=== PATIENT | male | born 1965 | race Caucasian/White ===

== ENCOUNTER 2016-12-06 11:40 | Emergency (ER) | payer OTHER ==
[~2016-12-06] VITALS: Ht 162.6 cm; Wt 89.0 kg
[~2016-12-06 11:40] MED LIST: CLIN-73 PO; HYDR-3498 PO
[2016-12-06 11:44] VITALS: Ht 162.6 cm; Wt 89.0 kg
[2016-12-06] MEDS ORDERED: KETOROLAC 30 MG INJ IM STA (12:12)
--- NOTE | 2016-12-06 13:23 | RADRPT ---
PROCEDURE: XR Right Ankle. CLINICAL INDICATION: swelling pain TECHNIQUE: AP, oblique and lateral views of the right ankle were performed. COMPARISON: None. FINDINGS: There is normal mineralization and alignment. A well corticated os subfibulare is seen caudal to the distal right fibula. No acute fracture or osseous lesion is identified. There is mild anterior and posterior osteophytosis at the tibiotalar joint space. There is mild soft tissue swelling overlying the lateral malleolus. IMPRESSION: 1. No evidence of acute fracture or dislocation. 2. Mild osteoarthrosis of the tibiotalar joint. 3. Mild soft tissue swelling overlying the lateral malleolus. RPTAT: EE Physician Layo Date Time Electronically viewed and signed by Physician Layo on 12/06/2016 13:23 BROOKE/
--- NOTE | 2016-12-06 13:37 | ERD ---
ER Documentation Chief Complaint Date/Time DATE: 12/06/16 TIME: 13:32 Chief Complaint right foot/ankle pAIN HPI This 51-year-old male presents to the emergency department today complaining of right ankle pain and swelling for the past 5 days. States that he applied ice to the area. States that a year ago he was told he had a problem with his peroneal tendon he had an injection done at that time. States he is also have gout in the past in his toe but this does not feel the same. States he is able to ambulate with pain. Denies any specific trauma. Denies any fevers or chills ROS All systems reviewed and are negative except as per history of present illness. Medications Home Meds Active Scripts Naproxen* (Naprosyn*) 500 Mg Tablet, 500 MG PO BID Y for PAIN AND/OR INFLAMMATION, #30 TAB Prov:KENNETH MCPHERSON PA-C 12/06/16 Tramadol HCl (Tramadol HCl) 50 Mg Tablet, 50 MG PO Q4 Y for PAIN, #15 TAB Prov:KENNETH MCPHERSON PA-C 12/06/16 Clindamycin Hcl* (Clindamycin Hcl*) 300 Mg Capsule, 300 MG PO QID for 10 Days, CAP Prov:ARTUR MAURICIO MD 05/09/15 Hydrocodone Bit-Acetaminophen* (Kilmichael*) 5-325 Mg Tab, 1 TAB PO Q6 Y for PAIN, # 16 TAB Prov:ARTUR MAURICIO MD 05/09/15 Allergies Allergies: Uncoded Allergies: MOTIRN (Allergy, Unknown, 05/09/15) PMhx/Soc History of Surgery: Yes (meniscus cap surgery) Anesthesia Reaction: No Hx Neurological Disorder: No Hx Respiratory Disorders: No Hx Cardiac Disorders: No Hx Psychiatric Problems: No Hx Miscellaneous Medical Probl: Yes (gout) Hx Alcohol Use: Yes (last night) Hx Substance Use: Yes (marijuana) Hx Tobacco Use: No Physical Exam Vitals Vital Signs Date Time Temp Pulse Resp B/P Pulse Ox O2 Delivery O2 Flow Rate FiO2 12/06/16 11:44 97.7 89 18 140/78 99 Physical Exam Const: NAD Head: Atraumatic Eyes: Normal Conjunctiva ENT: Normal External Ears, Nose and Mouth. Neck: Full range of motion..~ No meningismus. Resp: Clear to auscultation bilaterally Cardio: Regular rate and rhythm, no murmurs Abd: Soft, non tender, non distended. Normal bowel sounds Skin: No petechiae or rashes MSK: Right ankle with no obvious deformity. No erythema or warmth mild effusion over lateral aspect of ankle. Full active range of motion with pain. Tenderness to palpation lateral malleolus. Pulses 2+. Neur: Awake and alert Psych: Normal Mood and Affect Results 24 hrs Current Medications Medications (Trade) Dose Ordered Sig/Edy Route PRN Reason Start Time Stop Time Status Last Admin Dose Admin Ketorolac Tromethamine (Toradol) 30 mg ONCE STAT IM 12/06/16 12:12 12/06/16 12:13 DC 12/06/16 12:46 DIAGNOSTIC IMAGING REPORT Patient: CHANDANA QUINTANILLA : 1965 Age: 51 Sex: M MR #: [id number] DOS: 12/06/16 0000 Ordering MD: KENNETH MCPHERSON PA-C Location: [facility] Room/Bed: PROCEDURE: XR Right Ankle. CLINICAL INDICATION: swelling pain TECHNIQUE: AP, oblique and lateral views of the right ankle were performed. COMPARISON: None. FINDINGS: There is normal mineralization and alignment. A well corticated os subfibulare is seen caudal to the distal right fibula. No acute fracture or osseous lesion is identified. There is mild anterior and posterior osteophytosis at the tibiotalar joint space. There is mild soft tissue swelling overlying the lateral malleolus. IMPRESSION: 1. No evidence of acute fracture or dislocation. 2. Mild osteoarthrosis of the tibiotalar joint. 3. Mild soft tissue swelling overlying the lateral malleolus. RPTAT: EE Physician Layo Date Time Electronically viewed and signed by Physician Layo on 12/06/2016 13: 23 RC/ CC: KENNETH MCPHERSON PA-C Procedures/MDM This 51-year-old male who presents the emergency department today complaining of right ankle pain and swelling for the past 5 days. Patient has had a history of peroneal tendon problem in the past. Patient has also had gout in the past but he states that this feels different. Patient has no erythema or warmth and a lower suspicion that this is gout as patient is able to ambulate. Given that patient did have some swelling and did obtain images Per the radiology report patient has no evidence of acute fracture dislocation. There is mild osteoarthrosis of the tibiotalar joint. There is mild soft tissue swelling overlying the lateral malleolus. May be the source of the patient's pain and swelling. Patient is afebrile and otherwise well-appearing. I do have low suspicion for septic joint or gout although patient has had gout in the past he did indicate that this feels different. Patient did indicate that he has crutches at home. He was given Toradol here in the emergency department. Will begin a short course of tramadol and Naprosyn for home. He is also given an Jose wrap. At this time the patient is stable for discharge and outpatient management. Patient should follow up with their PCP in the next 1-2 days for possible referral to orthopedic nurse. They may return to the emergency department sooner for any persistent or worsening of symptoms. Patient understood and agreed with the plan. Departure Diagnosis: Primary Impression: Ankle pain Laterality: right Chronicity: unspecified Qualified Code: M25.571 - Right ankle pain, unspecified chronicity Condition: KENNETH White PA-C Dec 06, 2016 13:37
[2016-12-06] MEDS ORDERED: NAPR-260 PO (13:40)
[2016-12-06] MEDS ORDERED: TRAM50TA2 PO (13:40)
== END 2016-12-06 14:33 | disposition home or self-care (01) ==
LOC: FTE 11:40
DX: M25.571 Pain in right ankle and joints of right foot (principal)
CPT/HCPCS: 73610; 96372; J1885; Z7502

== ENCOUNTER 2017-02-28 03:34 | Emergency (ER) | payer OTHER ==
[~2017-02-28] VITALS: Ht 160 cm; Wt 63.6 kg
[~2017-02-28 03:34] MED LIST changes: +NAPR-260 PO; +TRAM50TA2 PO
[2017-02-28 03:37] VITALS: Ht 160 cm; Wt 63.6 kg
--- NOTE | 2017-02-28 04:59 | ERD ---
ER Documentation Chief Complaint Chief Complaint increasing rt wrist pain, HPI 51-year-old male presents here to emergency department for complaints of right wrist pain that has been going on for 1 month now. Patient is complaining of pain sharp pain, 6/10 scale, as was upon movement accompanied with mild swelling at times. Patient describes the pain is intermittent. Patient has history of arthritis, was seen by primary care doctor and was told that possibly it is from his arthritis. Patient did not have any injury on affected area. Patient denies any numbness or tingling. Patient took naproxen for pain with only mild relief. ROS All systems reviewed and are negative except as per history of present illness. Medications Home Meds Active Scripts Naproxen* (Naprosyn*) 500 Mg Tablet, 500 MG PO BID Y for PAIN AND/OR INFLAMMATION, #30 TAB Prov:KENNETH MCPHERSON PA-C 12/06/16 Tramadol HCl (Tramadol HCl) 50 Mg Tablet, 50 MG PO Q4 Y for PAIN, #15 TAB Prov:KENNETH MCPHERSON PA-C 12/06/16 Clindamycin Hcl* (Clindamycin Hcl*) 300 Mg Capsule, 300 MG PO QID for 10 Days, CAP Prov:ARTUR MAURICIO MD 05/09/15 Hydrocodone Bit-Acetaminophen* (Mercedita*) 5-325 Mg Tab, 1 TAB PO Q6 Y for PAIN, # 16 TAB Prov:ARTUR MAURICIO MD 05/09/15 Allergies Allergies: Uncoded Allergies: MOTIRN (Allergy, Unknown, 05/09/15) NSAIDS (Allergy, Unknown, 02/28/17) PMhx/Soc History of Surgery: Yes (meniscus cap surgery) Anesthesia Reaction: No Hx Neurological Disorder: No Hx Respiratory Disorders: No Hx Cardiac Disorders: No Hx Psychiatric Problems: No Hx Miscellaneous Medical Probl: Yes (gout) Hx Alcohol Use: Yes (last night) Hx Substance Use: Yes (marijuana) Hx Tobacco Use: No Smoking Status: Never smoker FmHx Family History: No coronary disease, No diabetes, No other Physical Exam Vitals Vital Signs Date Time Temp Pulse Resp B/P Pulse Ox O2 Delivery O2 Flow Rate FiO2 02/28/17 03:37 97.0 73 18 124/89 97 Physical Exam GENERAL: The patient is well developed and appropriate for usual state of health, in no apparent distress. CHEST: Clear to auscultation bilaterally. There are no rales, wheezes or rhonchi. HEART: Regular rate and rhythm. No murmurs, clicks, rubs or gallops. No S3 or S4. ABDOMEN: Soft, nontender and nondistended. Good bowel sounds. No rebound or guarding. No gross peritonitis. No gross organomegaly or masses. No Newman sign or McBurney point tenderness. BACK: No midline or flank tenderness. EXTREMITIES: Tenderness on palpation on the ulnar and radial aspect of the right wrist, able to do full range of motion without any restriction. No deformity noted. Equal pulses bilaterally. There is no peripheral clubbing, cyanosis or edema. No focal swelling or erythema. Full range of motion. Grossly neurovascularly intact. NEURO: Alert and oriented. Cranial nerves 2-12 intact. Motor strength in all 4 extremities with 5/5 strength. Sensation grossly intact. Normal speech and gait. SKIN: There is no apparent rash or petechia. The skin is warm and dry. HEMATOLOGIC AND LYMPHATIC: There is no evidence of excessive bruising or lymphedema. No gross cervical, axillary, or inguinal lymphadenopathy. Results 24 hrs PROCEDURE: Right wrist x-ray CLINICAL INDICATION: Right wrist pain TECHNIQUE: AP, lateral and oblique views of the wrist were obtained. COMPARISON: None FINDINGS: Appearance of anterior wrist soft tissue swelling. Appearance of mild increased density in the lunate which could be secondary to a nondisplaced fracture or avascular necrosis. No dislocation is seen. No significant appearing arthritic changes are seen. There is appearance of mild elevation of the pronator quadratus fat pad which is suggestive of effusion. IMPRESSION: Appearance of anterior wrist soft tissue swelling. Appearance of mild increased density in the lunate which could be secondary to a nondisplaced fracture or avascular necrosis. There is appearance of mild elevation of the pronator quadratus fat pad which is suggestive of effusion. RPTAT: HJES .Addison Martin MD, Date Time Electronically viewed and signed by .Addison Martin MD, on 02/28/2017 05:06 .S/ CC: MADDIE ALCARAZ NP Procedures/MDM Medical Decision Making: Patient's pain is most likely consistent with a lunate fracture of the right hand. There is no suspicion for neurovascular compromise. Patient has intact sensation and circulation of the affected extremity. There is low suspicion for septic arthritis. Patient does not have any fever. Radiology exams of the affected area does not show any dislocation. Disposition: Home. Patient is given prescription for Mercedita severe pain. Patient was advised to elevate the affected area and apply ice on affected area. Patient was advised that if symptoms are worse, numbness, tingling, high fever, unable to move joint, worsening symptoms, to return to emergency department immediately. Otherwise, patient is advised to follow up with the primary care doctor in 5-7 days for reevaluation of symptoms. See hand orthopedic doctor within 3-5 days Disclaimer: Inadvertent spelling and grammatical errors are likely due to EHR/ dictation software use and do not reflect on the overall quality of patient care. Also, please note that the electronic time recorded on this note does not necessarily reflect the actual time of the patient encounter. Departure Diagnosis: Primary Impression: Lunate fracture, closed Encounter type: initial encounter Fracture alignment: nondisplaced Laterality: right Qualified Code: S62.124A - Closed nondisplaced fracture of lunate of right wrist, initial encounter Condition: Stable Patient Instructions: Fracture, Wrist [General] Additional Instructions: Patient is given prescription for Mercedita severe pain. Patient was advised to elevate the affected area and apply ice on affected area. Patient was advised that if symptoms are worse, numbness, tingling, high fever, unable to move joint , worsening symptoms, to return to emergency department immediately. Otherwise, patient is advised to follow up with the primary care doctor in 5-7 days for reevaluation of symptoms. See hand orthopedic doctor within 3-5 days MADDIE ALCARAZ NP Feb 28, 2017 04:59
--- NOTE | 2017-02-28 05:06 | RADRPT ---
PROCEDURE: Right wrist x-ray CLINICAL INDICATION: Right wrist pain TECHNIQUE: AP, lateral and oblique views of the wrist were obtained. COMPARISON: None FINDINGS: Appearance of anterior wrist soft tissue swelling. Appearance of mild increased density in the lunat e which could be secondary to a nondisplaced fracture or avascular necrosis. No dislocation is seen. No significant appearing arthritic changes are seen. There is appearance of mild elevation of the p ronator quadratus fat pad which is suggestive of effusion. IMPRESSION: Appearance of anterior wrist soft tissue swelling. Appearance of mild increased density in the lunat e which could be secondary to a nondisplaced fracture or avascular necrosis. There is appearance of mild elevation of the pronator quadratus fat pad which is suggestive of effusion. RPTAT: HJES .Addison Martin MD, Date Time Electronically viewed and signed by .Addison Martin MD, on 02/28/2017 05:06 .S/
[2017-02-28] MEDS ORDERED: HYDR-906 PO (05:13)
== END 2017-02-28 05:48 | disposition home or self-care (01) ==
LOC: FTE 03:34
DX: S62.124A Nondisplaced fracture of lunate [semilunar], right wrist, initial encounter for closed fracture (principal); X58.XXXA Exposure to other specified factors, initial encounter; Y92.9 Unspecified place or not applicable
CPT/HCPCS: 29125; 73110; Z7502